=== PATIENT | female | born 1985 | race Caucasian/White ===

== ENCOUNTER 2019-04-18 10:29 | Emergency (ER) | payer OTHER, BC ==
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
[2019-04-18 13:29] VITALS: BP 124/84
== END 2019-04-18 13:29 | disposition home or self-care (01) ==
LOC: ER 10:29
DX: S60.212A Contusion of left wrist, initial encounter (principal); S20.211A Contusion of right front wall of thorax, initial encounter; S80.10XA Contusion of unspecified lower leg, initial encounter; S20.411A Abrasion of right back wall of thorax, initial encounter; S40.211A Abrasion of right shoulder, initial encounter; S09.91XA Unspecified injury of ear, initial encounter; M79.632 Pain in left forearm; R07.9 Chest pain, unspecified; R51 Headache; H93.12 Tinnitus, left ear; V49.50XA Passenger injured in collision with unspecified motor vehicles in traffic accident, initial encounter; Z88.2 Allergy status to sulfonamides; Z88.6 Allergy status to analgesic agent
CPT/HCPCS: 99283; 73110; 70450; 71260; L3908